=== PATIENT | male | born 1945 | race Caucasian/White ===

== ENCOUNTER 2021-06-17 16:22 | Emergency (ER) | payer MEDICARE ==
[~2021-06-17 16:22] MED LIST: ASPIRIN CHEWABL81 MG PO; ATENOLOL25 M1 PO; COZAAR 100MG T100 MG PO; FEOSOL325 MG PO; FLOMAX0.4 MG PO; HUMULIN N100 UNIT/3 SC; HUMULIN R100 UNIT/1 SC; LATANOPROST2.5 ML EYEBOTH; LIPITOR40 MG PO; OS-CAL500 MG PO; PAROXETINE 20MG20 MG PO; SYNTHROID25 MCG PO; SYNTHROID50 MCG PO; THERMOTABS TAB1 EACH PO; TIMOLOL MALEATE5 M2 EYEBOTH; TRAZODONE HCL50 MG PO; TRIAMTERENE-HC1 EACH PO; VENTOLIN HFA IN18 GM INH
== END 2021-06-17 18:39 | disposition home or self-care (01) ==
LOC: FER 16:22
DX: S00.81XA Abrasion of other part of head, initial encounter (principal); S60.511A Abrasion of right hand, initial encounter; S09.90XA Unspecified injury of head, initial encounter; Z23 Encounter for immunization; W19.XXXA Unspecified fall, initial encounter; Y92.89 Other specified places as the place of occurrence of the external cause
CPT/HCPCS: 70450; 73130; 90471; 90715

== ENCOUNTER 2021-07-20 13:05 | Emergency (ER) | payer MEDICARE | END 2021-07-20 15:56 | disposition home or self-care (01) | LOC: FER 13:05 | DX: S02.2XXA Fracture of nasal bones, initial encounter for closed fracture (principal); T14.8XXA Other injury of unspecified body region, initial encounter; W01.0XXA Fall on same level from slipping, tripping and stumbling without subsequent striking against object, initial encounter; Y93.89 Activity, other specified; Y92.512 Supermarket, store or market as the place of occurrence of the external cause | CPT/HCPCS: 70450; 70486 ==